=== PATIENT | male | born 1990 | race Two or more races ===

== ENCOUNTER 2022-06-18 23:27 | Emergency (ER) | payer OTHER ==
--- NOTE | 2022-06-19 00:43 | ED Physician Documentation ---
History of Present Illness - Stated complaint Stated Complaint: R EYE/REDNESS - Chief complaint Chief Complaint: Heent - History obtained from History obtained from: Patient - Additonal information Additional information: 32-year-old man with history of psoriasis presents with spontaneous subconjunctival hemorrhage to the right eye, worsening today. denies vision changes, pain or discharge. denies trauma Review of Systems Eyes: denies: Loss of vision, Photophobia, Discharge, Irritation PD PAST MEDICAL HISTORY - Past Medical History Past Medical History: No - Past Surgical History Past Surgical History: No - Allergies Allergies/Adverse Reactions: Allergies Allergy/AdvReac Type Severity Reaction Status Date / Time No Known Drug Allergies Allergy Verified 06/18/22 23:31 - Social History Does the pt smoke?: No Does the pt drink ETOH?: No Does the pt have substance abuse?: No - Immunizations Immunizations are current?: Yes PD ED PE NORMAL - Vitals Vital signs reviewed: Yes - General General: Alert and oriented X 3, No acute distress, Well developed/nourished - HEENT HEENT: Atraumatic, PERRL, Other (R eye subconjunctival hemorrhage) Results - Vitals Vitals: Vital Signs - 24 hr 06/18/22 23:31 Temperature 36.5 C Heart Rate 78 Respiratory 16 Rate Blood Pressure 130/88 H O2 Saturation 100 Oxygen O2 Source Room air Procedures - General procedure General procedure: Lara lamp exam with fluorescein dye uncovered no evidence of corneal abrasion. He does have a subconjunctival hemorrhage to the right eye. Eversion of eyelids uncovered no foreign body.Patient tolerated well. PD Medical Decision Making - ED course ED course: 32-year-old male presented with spontaneous conjunctival hemorrhage to the right eye. Lara lamp exam and fluorescein exam was benign. He has 20/15 vision bilaterally. Education given about spontaneous subconjunctival hemorrhage. Plan to follow-up with primary care provider. Return precautions given. Departure - Departure Disposition: 01 Home, Self Care Clinical Impression: Conjunctival hemorrhage of right eye Condition: Good Instructions: Subconjunctival Hemorrhage Comments: You are seen in the emergency department for subconjunctival hemorrhage. You had a fluorescein exam that was normal. Your vision is normal. It should resolve on its own in 2-3 weeks. [place] Return to the emergency department if you have vision changes, eye discharge, pain, new or worsening symptoms or other concerns.
[2022-06-19 00:57] VITALS: BP 144/90
== END 2022-06-19 00:57 | disposition home or self-care (01) ==
LOC: ED 23:27
DX: H11.31 Conjunctival hemorrhage, right eye (principal)
CPT/HCPCS: 99281; 99283